=== PATIENT | female | born 1995 | race Caucasian/White ===

== ENCOUNTER 2018-02-22 07:32 | Day surgery (SDC) | payer OTHER, SELFPAY ==
[2018-02-22] VITALS (7 sets, daily range): BP systolic 108–122; BP diastolic 65–77; PULSE 74–97; RESP 8–16; TEMP 36.3–36.5; O2SAT 97–100; BMI 166.5
--- NOTE | 2018-02-22 | PATH_ITS ---
[facility] Accession Number: [id number] . 01 Material submitted: . LEFT THIGH . 01 Clinical history: . PILAR CYSTS . 02 Diagnosis: Skin Biopsies Left Thigh: Changes consistent with ruptured epidermal inclusion cyst with severe secondary inflammation involving both biopsy specimens. Negative for malignancy and significant atypia. MRV/02/27/2018 . 02 Electronically signed: . Tim Aguila MD, Pathologist NPI- [id number] . 01 Gross description: . Received in formalin, labeled pilar cysts left thigh, are two unoriented pieces of skin with underlying tissue (skin #1-1.0 x 0.9 x 0.5 cm, skin #2-2.0 x 0.8 x 0.5 cm). The skin is simon-white smooth and shiny. The subcutaneous tissue is densely fibrous and fatty. The resection margins are inked black. Skin #1 is bisected and entirely submitted in cassette A1, and skin #2 in A2. ([id number]) /[facility] . 02 Pathologist provided ICD-10: L72.0 . 02 CPT . 749144 Performed at: 01 [facility] [address], [place], [place] [id number] MD Jaime Eden MD Phone: [phone] Performed at: 02 [facility] [address] [place], [place] [id number] MD Mohamud Gardiner MD Phone: [phone]
[2018-02-22] MEDS: LACTATED RINGERS 1,000 ML 42 ML IV (08:47)
[2018-02-22] MEDS: LIDOCAINE 1% W/EPI INJ 10 ML INJ (09:30)
[2018-02-22] MEDS: BUPIVACAINE 0.5% (PF) 30 ML VIAL 10 ML INJ (09:30)
--- NOTE | 2018-02-22 10:03 | P.OP_ITS ---
Operative Date/Time/Diagnoses - Date of procedure: 02/22/18 Time of procedure: 09:56 Pre-op diagnosis: Multiple left thigh Pilar cysts Post-op diagnosis: same Procedure & Clinicians Procedure: Excision of 2 large Pilar cysts on the left inner thigh Same procedure as scheduled: Yes Surgeon: Odessa Giraldo Anesthesia Type: General (Rashid) and Local Operative Notes Findings: 2 cm tracking Pilar cyst on the left labia majora 1.5 cm Pilar cyst on the left upper thigh Closure Type: primary Specimen(s): other (Two cystic specimens) Estimated Blood Loss (mL): 3 Blood products transfused: none Procedure in detail: After obtaining informed consent, the patient was brought to the operating room and placed in the supine position on the operating table. Following successful induction of general endotracheal anesthesia, appropriate padding of all bony prominences, and placement of appropriate monitors, the legs were placed in frog-leg position and the perineum and upper thigh were prepped and draped in the standard surgical fashion. Following infiltration with local anesthetic to create a field block, an elliptical incision was fashioned over the palpable lesion on the left labia and carried down through the dermal layer of the skin. A large cystic structure was encountered. It tracked medially to the midline and contained a gelatinous material consistent with a pilonidal cyst. This structure was carefully dissected free from the overlying skin and underlying tissue sharply. It was delivered in one piece and placed in formalin before being passed from the table. The wound was checked for hemostasis and irrigated with warm antibiotic solution. An identical procedure was performed on the left upper thigh lesion. It did not tract but was more similar to an isolated Pilar cyst. Both lesions were closed in 2 layers with Vicryl Monocryl suture. All sponge, needle , and instrument counts were correct at the conclusion of the case. The patient was allowed to awaken from anesthesia without difficulty and taken to the post-anesthesia care unit in good condition. Complications: none Condition: stable Disposition: PACU Plan for aftercare: 1. Discharge to home\ 2. Follow up with me in 10 days
--- NOTE | 2018-02-22 10:03 | PM.PREOP ---
Pre-operative Note Interval Note Pre-op Check: History & Physical Reviewed and Exam Performed
[2018-02-22] MEDS: HYDROCODONE/ACET 5/325 TABLET 1 TAB PO (10:21)
--- NOTE | 2018-02-22 10:58 | SUR.PHASEII ---
DR ESPINOZA CALLED FOR F/U AND DRESSING /INCISION CARE. BOTH VOICED AN UNDERSTANDING. PT DRESSED WHEN READY LEFT WHEN READY AND IN STABLE CINDITION.
== END 2018-02-22 10:50 | disposition home or self-care (01) ==
PROVIDERS: Visit Provider Surgery
PROC: (CPT 11422; principal; 2018-02-22 08:45)
DX: L72.11 Pilar cyst (principal)
CPT/HCPCS: 11422; 11402; 88304; J0171; J1100; J1885; J2250; J2405; J2704; J3010